=== PATIENT | female | born 2000 | race African-American/Black ===

== ENCOUNTER 2024-09-07 20:53 | Emergency (ER) | payer SELFPAY ==
--- NOTE | 2024-09-07 23:23 | EDPHYS ---
Physician Documentation [facility] Name: Elle Marquez Age: 23 yrs Sex: Female : 2000 Arrival Date: 09/07/2024 Time: 20:53 Bed 9 Private MD: ED Physician Jacob De León HPI: 09/08 02:02 This 23 yrs old Black Female presents to ER via Ambulatory with complaints of Vomiting dr5 - stomach pain, Toothache. 02:02 Onset: The symptoms/episode began/occurred 1 week(s) ago. Patient is a 23-year-old dr5 female with sickle cell trait coming in with dental pain. Patient reports she had bilateral lower leg pain on Saturday that resolved. Patient states she has lower left dental pain and swelling. Patient denies fever. Patient states that she knows that she needs to see a dentist. 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 - Infectious Disease History:: Denies. - Social history:: Smoking status: Patient denies any tobacco usage or history of. ROS: 09/08 02:02 Constitutional: as per hpi dr5 Exam: 02:02 Constitutional: This is a well developed, well nourished patient who is awake, alert, dr5 and in no acute distress. Head/Face: Normocephalic, atraumatic. Neck: Trachea midline, no thyromegaly or masses palpated, and no cervical lymphadenopathy. Supple, full range of motion without nuchal rigidity, or vertebral point tenderness. No Meningismus. Cardiovascular: Regular rate and rhythm with a normal S1 and S2. Normal PMI, no JVD. No pulse deficits. Respiratory: Lungs have equal breath sounds bilaterally, clear to auscultation. No rales, rhonchi or wheezes noted. No increased work of breathing, no retractions or nasal flaring. Abdomen/GI: Soft, non-tender, non-distended Back: No spinal tenderness. No costovertebral tenderness. Full range of motion. 02:02 ENT: Mouth: abscess, that is minimal, of the lower left third molar and lower left second molar, Posterior pharynx: is normal, Vital Signs: 09/07 22:13 BP 141 / 98; Pulse 83; Resp 16; Temp 99.4(O); Pulse Ox 99% on R/A; Weight 115.21 kg; tl4 Height 5 ft. 5 in. ; Pain 8/10; 23:38 BP 137 / 99; Pulse 85; Resp 18; Temp 97.6(O); Pulse Ox 100% on R/A; tl4 22:13 Body Mass Index 42.27 (115.21 kg, 165.1 cm) tl4 22:13 Pain Scale: Adult tl4 MDM: 21:13 Medical Screening Exam initiated dr5 09/08 02:02 Differential diagnosis:. dr5 02:04 Differential diagnosis: abscess, Dental Abscess, Dental Caries, Pharyngitis. Data dr5 reviewed: vital signs, nurses notes. I considered the following discharge prescriptions or medication management in the emergency department Medications were administered in the Emergency Department. See MAR. Care significantly affected by the following Social Determinants of Health: Poor access to healthcare and/or lack of insurance, Poor access to transportation. Counseling: I had a detailed discussion with the patient and/or guardian regarding the historical points, exam findings, and any diagnostic results supporting the discharge/admit diagnosis, the presence of at least one elevated blood pressure reading (>120/80) during this emergency department visit, the need for outpatient follow up, for definitive care, a dentist, to return to the emergency department if symptoms worsen or persist or if there are any questions or concerns that arise at home. Medication response: ibuprofen administration has improved the patient's pain, Lee. Response to treatment: the patient's symptoms have markedly improved after treatment. ED course: Recommended patient follow-up with dentist. Will cover for dental abscess formation with amoxicillin. Recommended alternating Tylenol Motrin as needed for pain and return to ER if needed.. Administered Medications: 09/07 23:37 Drug: HYDROcodone-acetaminophen PO 5 mg-325 mg 2 tabs PO once Route: PO; tl4 23:40 Follow up: Response: No adverse reaction; Medication administered at discharge. tl4 23:37 Drug: Ibuprofen PO 800 mg PO once Route: PO; tl4 23:40 Follow up: Response: No adverse reaction; Medication administered at discharge. tl4 Disposition Summary: 09/07/24 23:23 Discharge Ordered Notes: Location: Home dr5 Condition: Stable dr5 Diagnosis - Dental root caries dr5 Followup: dr5 - With: Emergency Department - When: As needed - Reason: Worsening of condition Followup: dr5 - With: Private Physician - When: 1 - 2 days - Reason: Recheck today's complaints, Continuance of care, Re-evaluation by your physician Discharge Instructions: - Discharge Summary Sheet dr5 - Dental Abscess dr5 Forms: - Medication Reconciliation Form dr5 - Antibiotic Education dr5 - Patient Portal Instructions dr5 - Leadership Thank You Letter dr5 Prescriptions: - Amoxicillin 875 mg Oral Tablet - take 1 tablet ORAL route every 12 hours for 10 days; 20 tablet; Refills: 0, dr5 Product Selection Permitted - Anaprox DS 550 mg Oral Tablet - take 1 tablet ORAL route every 12 hours As needed; 20 tablet; Refills: 0, dr5 Product Selection Permitted Addendum: 09/09/2024 01:55 I was immediately available for consultation during this patient's visit. I did not e c2 personally see the patient or discuss the patient with the [facility]. . Signatures: Jacob De León MD MD ec2 Nicolas Beltran RN RN tl4 Leonid Walker, INTERNET CONSULTANT-C INTERNET CONSULTANT-Cdr5
--- NOTE | 2024-09-07 23:23 | ER ---
Nurse's Notes [facility] Name: Elle Marquez Age: 23 yrs Sex: Female : 2000 Arrival Date: 09/07/2024 Time: 20:53 Bed 9 Private MD: Diagnosis: Dental root caries Presentation: 09/07 22:13 Chief complaint: Patient states: Pt c/o low back pain that radiates into both hips and tl4 legs since Saturday. Pt states yesterday she developed left side jaw pain. Pt states she has infected wisdom teeth. Pt states no relief with OTC meds. Coronavirus screen: At this time, the client does not indicate any symptoms associated with coronavirus-19. Ebola Screen: No symptoms or risks identified at this time. Initial Sepsis Screen: Does the patient meet any 2 criteria? No. Patient's initial sepsis screen is negative. Does the patient have a suspected source of infection? No. Patient's initial sepsis screen is negative. Risk Assessment: Do you want to hurt yourself or someone else? Patient reports no desire to harm self or others. Onset of symptoms was September 04, 2024. 22:13 Method Of Arrival: Ambulatory tl4 22:13 Acuity: MANUEL 4 tl4 Triage Assessment: 22:16 General: Appears in no apparent distress. Behavior is calm, cooperative. Pain: tl4 Complains of pain in back, pelvis, right leg, left leg and mouth. EENT: Reports pain in left side jaw. Neuro: Level of Consciousness is awake, alert, obeys commands, Oriented to person, place, time, situation. Cardiovascular: Capillary refill < 3 seconds Patient's skin is warm and dry. Respiratory: Airway is patent Respiratory effort is even, unlabored, Respiratory pattern is regular, symmetrical, Breath sounds are clear bilaterally. GI: Reports tolerance of fluids, tolerance of food, Patient currently denies diarrhea, nausea, vomiting. : No signs and/or symptoms were reported regarding the genitourinary system. Derm: No signs and/or symptoms reported regarding the dermatologic system. Musculoskeletal: Reports pain in back, pelvis, right leg and left leg. 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 - Infectious Disease History:: Denies. - Social history:: Smoking status: Patient denies any tobacco usage or history of. Screenin:18 [facility] ED Fall Risk Assessment (Adult) History of falling in the last 3 months, tl4 including since admission No falls in past 3 months (0 pts) Confusion or Disorientation No (0 pts) Intoxicated or Sedated No (0 pts) Impaired Gait No (0 pts) Mobility Assist Device Used No (0 pt) Altered Elimination No (0 pt) Score/Fall Risk Level 0 - 2 = Low Risk Oriented to surroundings, Maintained a safe environment, Educated pt \T\ family on fall prevention, incl call for assistance when getting out of bed, Assessed \T\ reinforced patient's understanding of fall precautions. Abuse screen: Denies threats or abuse. Denies injuries from another. Nutritional screening: No deficits noted. Tuberculosis screening: No symptoms or risk factors identified. Assessment: 23:37 Reassessment: No changes from previously documented assessment. Patient and/or family tl4 updated on plan of care and expected duration. Pain level reassessed. Patient is alert, oriented x 3, equal unlabored respirations, skin warm/dry/pink. GI: Patient currently denies diarrhea, nausea, vomiting. Vital Signs: 22:13 BP 141 / 98; Pulse 83; Resp 16; Temp 99.4(O); Pulse Ox 99% on R/A; Weight 115.21 kg; tl4 Height 5 ft. 5 in. ; Pain 8/10; 23:38 BP 137 / 99; Pulse 85; Resp 18; Temp 97.6(O); Pulse Ox 100% on R/A; tl4 22:13 Body Mass Index 42.27 (115.21 kg, 165.1 cm) tl4 22:13 Pain Scale: Adult tl4 ED Course: 20:55 Patient arrived in ED. ra3 21:13 Leonid Walker FNP-C [facility] dr5 21:13 Jacob De León MD is Attending Physician. dr5 21:27 Nicolas Beltran, JOSE is Primary Nurse. tl4 22:15 Triage completed. tl4 22:17 Arm band placed on right wrist. tl4 22:18 Patient has correct armband on for positive identification. Bed in low position. Call tl4 light in reach. Side rails up X 1. Provided Education on: call sujey ed process. Door closed. Noise minimized. Lights dimmed. Moved to private room. Warm blanket given. 22:18 No provider procedures requiring assistance completed. tl4 23:22 Jacob De León MD is Referral Physician. dr5 23:39 Patient did not have IV access during this emergency room visit. tl4 Administered Medications: 23:37 Drug: HYDROcodone-acetaminophen PO 5 mg-325 mg 2 tabs PO once Route: PO; tl4 23:40 Follow up: Response: No adverse reaction; Medication administered at discharge. tl4 23:37 Drug: Ibuprofen PO 800 mg PO once Route: PO; tl4 23:40 Follow up: Response: No adverse reaction; Medication administered at discharge. tl4 Medication: 22:18 VIS not applicable for this client. tl4 Outcome: 23:23 Discharge ordered by . dr5 23:38 Discharged to home ambulatory, tl4 23:38 Condition: stable 23:38 Discharge instructions given to patient, Instructed on discharge instructions, follow up and referral plans. medication usage, Demonstrated understanding of instructions, follow-up care, medications, Prescriptions given X 2, 23:39 Patient left the ED. tl4 Signatures: Nicolas Beltran RN RN tl4 Winnie Frank ra3 Leonid Walker, SINTER FEEDER-C SINTER FEEDER-Cdr5
[2024-09-07] MEDS ORDERED: HYDROCODONE/APAP 5/325 MG TAB ONE (23:30)
[2024-09-07] MEDS ORDERED: IBUPROFEN 400 MG TAB ONE (23:30)
[2024-09-08 01:17] VITALS: BP 137/99; TEMP 97.6; O2SAT 100
== END 2024-09-07 23:39 | disposition home or self-care (01) ==
LOC: ER 20:53
DX: K02.7 Dental root caries (principal)
CPT/HCPCS: 99283